=== PATIENT | male | born 1985 | race Caucasian/White ===

== ENCOUNTER 2018-03-20 09:31 | Emergency (ER) | payer OTHER ==
[2018-03-20] MEDS ORDERED: ONDANSETRON DISINTEGRATING 4 MG TAB PO ONE (10:08)
[2018-03-20] MEDS ORDERED: ACETAMINOPHEN 325 MG TAB PO ONE (10:08)
[2018-03-20] MEDS ORDERED: IBUPROFEN 600 MG TAB PO ONE (10:08)
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
[2018-03-20 10:24] VITALS: BP 125/78
== END 2018-03-20 10:24 | disposition home or self-care (01) ==
DX: S06.0X0A Concussion without loss of consciousness, initial encounter (principal); V89.2XXA Person injured in unspecified motor-vehicle accident, traffic, initial encounter